=== PATIENT | male | born 1960 | race Caucasian/White ===

== ENCOUNTER 2018-12-06 14:46 | Emergency (ER) | payer SELFPAY ==
--- NOTE | 2018-12-06 15:34 | NUR ---
NIL X1
--- NOTE | 2018-12-06 15:42 | NUR ---
NIL X2
--- NOTE | 2018-12-06 15:53 | NUR ---
NIL X 3
[2018-12-06] MEDS ORDERED: QUET300T5 PO (17:53)
[2018-12-06] MEDS ORDERED: METF500T17 PO (17:53)
[2018-12-06] MEDS ORDERED: DIVA500T2 PO (17:53)
== END 2018-12-06 15:59 ==
LOC: ED 15:53
DX: Z76.0 Encounter for issue of repeat prescription (principal); Z53.21 Procedure and treatment not carried out due to patient leaving prior to being seen by health care provider

== ENCOUNTER 2018-12-06 17:18 | Emergency (ER) | payer SELFPAY ==
[~2018-12-06] VITALS: Ht 182.9 cm; Wt 101.3 kg
[2018-12-06 17:29] VITALS: BP 161/103
--- NOTE | 2018-12-06 17:51 | NUR ---
PT STATED FROM FROM [facility], NO PMD,NEEDS SEROQUEL RX REFILL.
[2018-12-06] MEDS ORDERED: QUET300T5 PO (17:53)
[2018-12-06] MEDS ORDERED: DIVA500T2 PO (17:53)
[2018-12-06] MEDS ORDERED: METF500T17 PO (17:53)
--- NOTE | 2018-12-06 18:23 | NUR ---
Zeina CURRY, at bedside to evaluate pt.
[2018-12-06] MEDS ORDERED: QUETIAPINE 100MG TABLET PO STA ×2 (18:27)
[2018-12-06] MEDS ORDERED: IBUPROFEN 200 MG TABLET ONE (18:52)
[2018-12-06] MEDS ORDERED: QUETIAPINE 200 MG TABLET PO ONE (19:00)
[2018-12-06] MEDS ORDERED: QUETIAPINE 100MG TABLET PO ONE (19:00)
[2018-12-06] MEDS ORDERED: IBUPROFEN 200 MG TABLET PO ONE (19:00)
== END 2018-12-06 19:00 | disposition home or self-care (01) ==
LOC: ED 18:54
DX: G47.00 Insomnia, unspecified (principal); Z76.0 Encounter for issue of repeat prescription; E11.9 Type 2 diabetes mellitus without complications; F17.210 Nicotine dependence, cigarettes, uncomplicated
CPT/HCPCS: 82962; 99284

== ENCOUNTER 2018-12-23 20:25 | Emergency (ER) | payer SELFPAY ==
[~2018-12-23] VITALS: Ht 182.9 cm; Wt 104.0 kg
[~2018-12-23 20:25] MED LIST: DIVA500T2 PO; METF500T17 PO; QUET300T5 PO
[2018-12-23 20:28] VITALS: BP 155/99
== END 2018-12-23 20:57 | disposition left against medical advice (07) ==
LOC: ED 20:46
DX: J06.9 Acute upper respiratory infection, unspecified (principal); B34.9 Viral infection, unspecified; Z76.0 Encounter for issue of repeat prescription; E11.9 Type 2 diabetes mellitus without complications
CPT/HCPCS: 99281

== ENCOUNTER 2019-01-18 14:37 | Emergency (ER) | payer MEDICAID ==
[~2019-01-18] VITALS: Ht 182.9 cm; Wt 102.0 kg
[2019-01-18 14:45] VITALS: BP 132/87
[2019-01-18] MEDS ORDERED: QUET300T PO (14:59)
== END 2019-01-18 15:21 | disposition home or self-care (01) ==
LOC: ED 15:15
DX: F51.01 Primary insomnia (principal); E11.9 Type 2 diabetes mellitus without complications; Z76.0 Encounter for issue of repeat prescription
CPT/HCPCS: 99283